=== PATIENT | male | born 1995 | race African-American/Black ===

== ENCOUNTER 2018-12-10 22:59 | Emergency (ER) | payer SELFPAY ==
[~2018-12-10] VITALS: Ht 188 cm; Wt 76.2 kg
[2018-12-10 23:07] VITALS: Ht 188 cm; Wt 76.2 kg
[2018-12-11] MEDS ORDERED: NAPROSYN500 MG PO (00:50)
[2018-12-11 01:05] VITALS: BP 139/89
== END 2018-12-11 01:05 | disposition home or self-care (01) ==
LOC: D.ER 22:59
DX: S83.91XA Sprain of unspecified site of right knee, initial encounter (principal); Y93.67 Activity, basketball; Y92.89 Other specified places as the place of occurrence of the external cause; F17.200 Nicotine dependence, unspecified, uncomplicated

== ENCOUNTER 2019-07-12 02:23 | Emergency (ER) | payer MEDICAID ==
[~2019-07-12] VITALS: Ht 188 cm; Wt 71.7 kg
[~2019-07-12 02:23] MED LIST: NAPROSYN500 MG PO
[2019-07-12 02:29] VITALS: Ht 188 cm; Wt 71.7 kg
[2019-07-12] MEDS ORDERED: NAPROSYN500 MG PO (03:11)
[2019-07-12] MEDS ORDERED: ULTRAM50 MG PO (03:11)
[2019-07-12 03:37] VITALS: BP 120/72
[2019-07-14 12:00] VITALS: Ht 188 cm; Wt 71.7 kg
== END 2019-07-12 03:27 | disposition home or self-care (01) ==
LOC: D.ER 02:23
DX: S83.91XA Sprain of unspecified site of right knee, initial encounter (principal); Y93.67 Activity, basketball; Y92.89 Other specified places as the place of occurrence of the external cause

== ENCOUNTER 2019-07-13 14:27 | Inpatient (IN) | payer MEDICAID ==
[2019-07-13] VITALS (19 sets, daily range): BP systolic 109–138; BP diastolic 77–98; BMI 20.3
[~2019-07-13] VITALS: Ht 188 cm; Wt 72.7 kg
[~2019-07-13 14:27] MED LIST changes: +ULTRAM50 MG PO
--- NOTE | 2019-07-13 14:28 | NUR ---
pt presented in waiting room
--- NOTE | 2019-07-13 14:29 | NUR ---
bud monique griffith in pt room
--- NOTE | 2019-07-13 14:32 | NUR ---
xray and lab in room
--- NOTE | 2019-07-13 14:35 | NUR ---
18 G left forearm 18 G right forearm
--- NOTE | 2019-07-13 14:40 | NUR ---
NOTIFIED SURVIVAL FLIGHT DISPATCH AT THIS TIME.
--- NOTE | 2019-07-13 14:43 | NUR ---
pads placed - 16 Fr criticore godfrey placed with immediate yellow urine return - no gross blood present in urine
--- NOTE | 2019-07-13 14:45 | NUR ---
marco james nurse circuit board drafter presents to T2
[2019-07-13 14:53] LABS: APTT 27.2 SECONDS (22.8-39.4); INR 1.07 (0.85-1.17); PROTIME 13.4 SECONDS (11.6-15.0)
[2019-07-13 14:58] LABS: BASOPHILS 0.5 % (0-2); EOSINOPHILS 1.1 % (0-7); HEMATOCRIT 42.6 % (42.0-54.0); IMMATURE GRANULOCYTES 0.1 % (0-5); LYMPHOCYTES 36.9 % (15-50); MCH 29.3 pg (26.0-34.0); MCHC 35.2 g/dL (31.0-37.0); MCV 83.2 fL (80.0-100.0); MEAN PLATELET VOLUME 9.1 fL (7.4-10.4); NEUTROPHILS 56.4 % (40-80); PLATELET COUNT 172 10x3/uL (130-400); RBC 5.12 10x6/uL (4.20-6.10); RDW 12.4 % (11.5-14.5); WBC 8.8 10x3/uL (4.8-10.8)
[2019-07-13 14:59] LABS: ALBUMIN 3.9 g/dL (3.4-5.0); ALKALINE PHOSPHATASE 72 U/L (46-116); ALT (SGPT) 47 U/L (10-68); BILIRUBIN - TOTAL 0.43 mg/dL (0.2-1.3); CALC OSMOLALITY 280 mosm/kg (275-300); CARBON DIOXIDE 24.4 mmol/L (21.0-32.0); CHLORIDE - SERUM 104 mmol/L (98-107); CREATININE - SERUM 1.1 mg/dL (0.6-1.3); GLUCOSE 111 mg/dL (74-106); POTASSIUM - SERUM 3.8 mmol/L (3.5-5.1); SODIUM 141 mmol/L (136-145); UREA NITROGEN 10 mg/dL (7-18); eGFR NON AFRICAN AMERICAN 90 mL/min (90-120)
--- NOTE | 2019-07-13 15:00 | NUR ---
[phone] at [id number]
--- NOTE | 2019-07-13 15:00 | NUR ---
PD @ BEDSIDE SPEAKING WITH PATIENT; GRANDMOTER AT BEDSIDE; PATIENT IS AWAKE AND ALERT; RESPONDS APPROPRIATELY; ADDITIONAL BLANKET GIVEN;
--- NOTE | 2019-07-13 15:01 | NUR ---
ER placed on lock down and pt visitors/family placed in family room at 1431
--- NOTE | 2019-07-13 15:04 | NUR ---
first unit of blood transfusion complete
--- NOTE | 2019-07-13 15:08 | NUR ---
returned from CT - pt accompanied by RN and provider to CT scan
--- NOTE | 2019-07-13 15:08 | NUR ---
returned from CT 22 G to r forearm
--- NOTE | 2019-07-13 15:09 | NUR ---
lashon on phone
--- NOTE | 2019-07-13 15:11 | NUR ---
patient speaking with PD Leonardo elizabeth4
--- NOTE | 2019-07-13 15:11 | NUR ---
pt confirms NKDA
--- NOTE | 2019-07-13 15:12 | NUR ---
spinal precautions initiated
[2019-07-13 15:16] LABS: TROPONIN-I < 0.017 ng/mL (0.000-0.060)
--- NOTE | 2019-07-13 15:17 | NUR ---
second unit of blood complete; patient is awake and alert; is able to move toes and hands; he is requesting grandmother to come back; patient covered with multiple blankets;
--- NOTE | 2019-07-13 15:19 | NUR ---
grandmother at bedside talking with patient.
[2019-07-13 15:24] LABS: APPEARANCE CLOUDY (CLEAR); COLOR AMBER (YELLOW)
[2019-07-13 15:25] LABS: BILIRUBIN NEGATIVE (NEGATIVE); GLUCOSE NEGATIVE (NEGATIVE); KETONE NEGATIVE (NEGATIVE); NITRITE NEGATIVE (NEGATIVE); PROTEIN 1+ mg/dL (NEGATIVE); SPECIFIC GRAVITY 1.025 (1.005-1.020); UROBILINOGEN NORMAL (NORMAL)
[2019-07-13 15:26] LABS: RED CELLS - URINE >50 /hpf (0-5); WHITE CELLS - URINE 0-5 /hpf (0-5)
[2019-07-13 15:27] LABS: BACTERIA FEW /hpf (NONE SEEN); EPITHELIAL CELLS 0-5 /hpf (0-5); UDS - AMPHET NEGATIVE QUAL (NEGATIVE); UDS - BARB NEGATIVE QUAL (NEGATIVE); UDS - BENZO NEGATIVE QUAL (NEGATIVE); UDS - COCAINE NEGATIVE QUAL (NEGATIVE); UDS - OPIATE NEGATIVE QUAL (NEGATIVE); UDS - PCP NEGATIVE QUAL (NEGATIVE); UDS - THC POSITIVE QUAL (NEGATIVE)
--- NOTE | 2019-07-13 15:28 | NUR ---
KHANG BURNETT @ BEDSIDE
--- NOTE | 2019-07-13 16:15 | NUR ---
ARIELLA AT BEDSIDE PLACING A CENTRAL LINE
[2019-07-13 16:50] LABS: HEMATOCRIT 38.5 % (42.0-54.0); HEMOGLOBIN 13.6 g/dL (13.5-17.5)
--- NOTE | 2019-07-13 16:50 | NUR ---
PT ARRIVED TO UNIT AT THIS TIME FROM ER VIA BED ACCOMPANIED BY HOSPITAL STAFF. UPON ARRIVAL PT NOTED TO VOMIT PINK COLORED FLUID X [address] KRISHNAN IN UNIT AT THAT TIME, SALAZAR ORDERED AND ADMIN. PT ASSISTED TO BED FROM ER BED. RT UPPER ABDOMEN SITE NOTED TO BE BULLET ENTRANCE SITE, OOZING MINIMAL AMOUNT OF BLOOD, GAUZE APPLIED TO AREA TO ASSIST THE DRAINAGE. DR DUARTE ON FLOOR TO SEE PT, NO ORDERS RECIEVED. DR MCGREGOR HAS BEEN NOTIFIED OF CONSULT BY DR KRISHNAN. VSS. WILL CONTINUE TO CLOSELY OBSERVE.
--- NOTE | 2019-07-13 17:19 | NUR ---
GRANDMOTHER AT BEDSIDE. EMERGENCY INFORMATION RECIEVED, CODE WORD SET UP. PT SLEEPING,RESPIRATIONS EVEN AND UNLABORED. NO ACUTE DISTRESS NOTED. WILL CONTINUE PLAN OF CARE.
--- NOTE | 2019-07-13 17:33 | NUR ---
SCD PLACED TO PT PER ORDERS AND ICENTIVE SPIROMETER PLACED IN PT ROOM BY BED PER ORDERS.
--- NOTE | 2019-07-13 20:00 | NUR ---
FAMILY AT BEDSIDE
[2019-07-13 20:35] LABS: HEMATOCRIT 38.3 % (42.0-54.0); HEMOGLOBIN 13.5 g/dL (13.5-17.5)
--- NOTE | 2019-07-13 22:55 | NUR ---
PATIENT HAD EPISODE OF VOMITING, BRIGHT RED LIQUID NOTED. REQUESTS NAUSEA MEDICATION.
[2019-07-14] VITALS (23 sets, daily range): BP systolic 104–135; BP diastolic 52–87; Ht 188 cm; Wt 72.7 kg
[2019-07-14] LABS: HEMATOCRIT 36.6 % (42.0-54.0); HEMOGLOBIN 12.9 g/dL (13.5-17.5)
--- NOTE | 2019-07-14 01:08 | NUR ---
PATIENT HAD ANOTHER EPISODE OF VOMITING. REQUESTED BEDPAN. NO BOWEL MOVEMENT NOTED.
--- NOTE | 2019-07-14 03:46 | NUR ---
PATIENT SLEEPING, NO DISTRESS NOTED. VITAL SIGNS WNL. IV INFUSING WITHOUT SIGNS OF INFILTRATION. BED LOWERED/LOCKED AND CALL LIGHT IS WITHIN REACH. WILL CONTINUE TO MONITOR.
[2019-07-14 05:31] LABS: BASOPHILS 0.1 % (0-2); EOSINOPHILS 0.1 % (0-7); HEMATOCRIT 33.9 % (42.0-54.0); HEMOGLOBIN 11.8 g/dL (13.5-17.5); IMMATURE GRANULOCYTES 0.3 % (0-5); MCH 29.1 pg (26.0-34.0); MCHC 34.8 g/dL (31.0-37.0); MCV 83.7 fL (80.0-100.0); MEAN PLATELET VOLUME 9.2 fL (7.4-10.4); MONOCYTES 4.2 % (2-11); NEUTROPHILS 88.3 % (40-80); RDW 12.7 % (11.5-14.5)
[2019-07-14 05:32] LABS: PLATELET COUNT 121 10x3/uL (130-400); RBC 4.05 10x6/uL (4.20-6.10); WBC 16.9 10x3/uL (4.8-10.8)
[2019-07-14 05:47] LABS: ALKALINE PHOSPHATASE 62 U/L (46-116); BILIRUBIN - TOTAL 0.62 mg/dL (0.2-1.3); CALC OSMOLALITY 277 mosm/kg (275-300); CALCIUM 7.9 mg/dL (8.5-10.1); CHLORIDE - SERUM 106 mmol/L (98-107); CREATININE - SERUM 0.9 mg/dL (0.6-1.3); GLUCOSE 121 mg/dL (74-106); PROTEIN - SERUM 5.7 g/dL (6.4-8.2); SODIUM 139 mmol/L (136-145); UREA NITROGEN 10 mg/dL (7-18); eGFR NON AFRICAN AMERICAN > 90 mL/min (90-120)
[2019-07-14 05:49] LABS: ALT (SGPT) 480 U/L (10-68); POTASSIUM - SERUM 4.4 mmol/L (3.5-5.1)
--- NOTE | 2019-07-14 05:55 | NUR ---
PATIENT CHG BATH COMPLETED FOR SURGERY, GOWN CHANGED, PATIENT REPOSITIONED. PATIENT TOLERATED WELL. DENIES FURTHER NEEDS OR CONCERNS AT THIS TIME. VITAL SIGNS WNL, PATIENT IN NO DISTRESS. BED LOWERED/LOCKED AND CALL LIGHT WITHIN REACH. WILL CONTINUE TO MONITOR.
--- NOTE | 2019-07-14 07:00 | NUR ---
SHIFT ASSESSMENT COMPLETED. PT CARE ASSUMED, MONITORS ON AND WORKING, VITALS STABLE. PT AWAKE AND ALERT, CALL LIGHT WITHIN REACH, WILL CONTINUE TO OBSERVE.
[2019-07-14 09:05] LABS: HEMATOCRIT 31.5 % (42.0-54.0); HEMOGLOBIN 11.2 g/dL (13.5-17.5)
--- NOTE | 2019-07-14 11:30 | NUR ---
PT URINE COMING OUT AROUND DUARTE, ATTEMPTED TO FLUSH CATHETER, AT WHICH TIME URINE WAS COMING OUT AROUND CATHETER, CHECKED TO SEE IF BALLON WAS INFLATED, ONCE BALLON WAS DEFLATED, THE DUARTE BECAME DISLODGED.
--- NOTE | 2019-07-14 13:40 | NUR ---
PT IN OR.
--- NOTE | 2019-07-14 14:16 | NUR ---
BULLET WAS GIVEN TO RYAN ROSS IN THE ICU TO BE GIVEN TO MELLY CRAWFORD.
[2019-07-14 14:50] LABS: HEMATOCRIT 29.4 % (42.0-54.0); HEMOGLOBIN 10.3 g/dL (13.5-17.5)
--- NOTE | 2019-07-14 15:30 | NUR ---
PT BACK FROM OR, PT AWAKE AND ALERT, MONITORS ON AND WORKING, FOREIGN BODY REMOVED, INCISION TO LEFT LOWER BACK CLEAN DRY INTACT. FAMILY AT BEDSIDE. CALL LIGHT WITHIN REACH, WILL CONTINUE TO OBSERVE.
--- NOTE | 2019-07-14 17:00 | NUR ---
PT AWAKE AND ALERT, TOLERATES FULL LIQUID DIET FINE, UP AT BEDSIDE, USES URINAL, PT DENIES ANY COMPLAINT OF PAIN OR DISCOMFORT AT THIS TIME, CALL LIGHT WITHIN REACH, WILL CONTINUE TO OBSERVE.
--- NOTE | 2019-07-14 19:00 | NUR ---
BEDSIDE REPORT AND SHIFT ASSESSMENT COMPLETE. VSS, NO SIGNS OF ACUTE DISTRESS NOTED. R ABD DRESSING CDI, BACK DRESSING CDI, WNL. DENIES NEEDS AT THIS TIME, WILL CONTINUE TO MONITOR.
--- NOTE | 2019-07-14 21:00 | NUR ---
MEDS GIVEN PER MAR. VSS, NO SIGNS OF ACUTE DISTRESS NOTED. WILL CONTINUE TO MONITOR.
--- NOTE | 2019-07-14 23:00 | NUR ---
ASSISTED TO SIDE OF BED TO USE URINAL. UOP 450 ML. PT BACK TO BED.
[2019-07-14 23:32] LABS: HEMATOCRIT 27.5 % (42.0-54.0); HEMOGLOBIN 9.9 g/dL (13.5-17.5)
[2019-07-15] VITALS (10 sets, daily range): BP systolic 98–129; BP diastolic 53–88
--- NOTE | 2019-07-15 01:00 | NUR ---
PT LAYING IN BED, TALKING ON THE PHONE. DENIES NEEDS AT THIS TIME. WILL CONTINUE TO MONITOR.
--- NOTE | 2019-07-15 03:00 | NUR ---
PT SLEEPING. VSS, NO SIGNS OF ACUTE DISTRESS NOTED. WILL CONTINUE TO MONITOR.
[2019-07-15 05:00] LABS: BASOPHILS 0.1 % (0-2); EOSINOPHILS 0.1 % (0-7); HEMATOCRIT 28.2 % (42.0-54.0); IMMATURE GRANULOCYTES 0.2 % (0-5); LYMPHOCYTES 13.8 % (15-50); MCH 29.3 pg (26.0-34.0); MCHC 35.5 g/dL (31.0-37.0); MCV 82.7 fL (80.0-100.0); MEAN PLATELET VOLUME 9.1 fL (7.4-10.4); MONOCYTES 7.5 % (2-11); NEUTROPHILS 78.3 % (40-80); PLATELET COUNT 110 10x3/uL (130-400); RBC 3.41 10x6/uL (4.20-6.10); RDW 12.4 % (11.5-14.5); WBC 14.3 10x3/uL (4.8-10.8)
--- NOTE | 2019-07-15 05:00 | NUR ---
MEDS GIVEN PER MAR. WILL MONITOR.
[2019-07-15 05:23] LABS: ALBUMIN 3.2 g/dL (3.4-5.0); ALKALINE PHOSPHATASE 65 U/L (46-116); ALT (SGPT) 489 U/L (10-68); BILIRUBIN - TOTAL 0.73 mg/dL (0.2-1.3); CALC OSMOLALITY 274 mosm/kg (275-300); CALCIUM 8.7 mg/dL (8.5-10.1); CARBON DIOXIDE 30.9 mmol/L (21.0-32.0); CHLORIDE - SERUM 104 mmol/L (98-107); CREATININE - SERUM 0.9 mg/dL (0.6-1.3); GLUCOSE 103 mg/dL (74-106); POTASSIUM - SERUM 4.2 mmol/L (3.5-5.1); PROTEIN - SERUM 6.3 g/dL (6.4-8.2); SODIUM 138 mmol/L (136-145); UREA NITROGEN 10 mg/dL (7-18); eGFR NON AFRICAN AMERICAN > 90 mL/min (90-120)
--- NOTE | 2019-07-15 06:00 | NUR ---
PT C/O PAIN IN SIDE. INCISION DRESSING CDI, WNL. MEDS GIVEN PER MAR. WILL CONTINUE TO MONITOR.
--- NOTE | 2019-07-15 08:27 | NUR ---
0700 ASLEEP AWAKENS EASILY VOICES NO COMPLAINTS AT PRESENT ASSESSMENT COMPLETE ALL IV LINES SALINE LOCKED REPOSITINED SELF IN BED WITH MINIMAL ASSIST PT ABLE TO USE BED CONTROLS TO REPOSITION BED
--- NOTE | 2019-07-15 08:29 | NUR ---
0800 VISITOR AT BEDSIDE REQUESTING PAIN MED INFORMED PT THAT HE HAD A PAIN PILL AT 0608 AND HE CAN HAVE ANOTHER AT 1008 STATED THAT AT 6AM HIS PAIN WAS ABOUT 8/10 AND NOW IT HAS DECREASED TO 4/10
--- NOTE | 2019-07-15 09:52 | NUR ---
0900 VISITORS AT BEDSIDE
--- NOTE | 2019-07-15 10:25 | NUR ---
1010 NORCO 5MG PO GIVEN FOR C/O ABDOMINAL PAIN 07/05. [facility]. D/C RIGHT AC AND LEFT FOREARM SALINE LOCKS. VOIDED 200ML OF DARK, CONCENTRATED URINE
[2019-07-15] MEDS ORDERED: HYDROCODON-ACE1 EAC7 PO (13:06)
[2019-07-15] MEDS ORDERED: LEVOFLOXACIN500 MG PO (13:07)
[2019-07-15] MEDS ORDERED: MIRALAX17 GM PO (13:07)
--- NOTE | 2019-07-15 14:15 | NUR ---
CVL/PIC DC'D AT THIS TIME, CATH INTACT, PT TOLERATED WELL
--- NOTE | 2019-07-15 14:20 | NUR ---
DC INSTRUCTIONS GIVEN TO PT
--- NOTE | 2019-07-15 14:24 | NUR ---
PT DC'D AT THIS TIME, VIA WHEELCHAIR
--- NOTE | 2019-07-15 18:10 | MORECARE ---
CASE MANAGEMENT DISCHARGE SUMMARY PATIENT: MARBELLA BASURTO UNIT: [id number] ADM DATE: 07/13/19 AGE: 23 : 97 SEX: M ROOM/BED: D.2305 AUTHOR: ANTHONY HERNANDEZ PHYSICIAN: REFERRING PHYSICIAN: MOISES KRISHNAN MD DATE OF SERVICE: 07/15/19 Discharge Plan Patient Name: MARBELLA BASURTO Facility: [facility]:[place] : 1995 Planned Disposition: Home Anticipated Discharge Date: Discharge Date: 07/15/2019 Expected LOS: Initial Reviewer: [email or web address] Initial Review Date: 07/15/2019 Generated: 07/15/19 7:10 pm Patient Name: MARBELLA BASURTO Page 10048 at 1810 All edits/amendments must be made on the electronic document DICTATION DATE: 07/15/191809 CRANE HELPER: ROSALIE 07/15/191809 RPT#: [id number] DC DATE:07/15/19 STATUS: DIS IN [facility] [address] [facility] [place] [address] END OF REPORT
--- NOTE | 2019-07-15 18:29 | MORECARE ---
CASE MANAGEMENT DISCHARGE SUMMARY PATIENT: MARBELLA BASURTO UNIT: [id number] ADM DATE: 07/13/19 AGE: 23 : 97 SEX: M ROOM/BED: D.2305 AUTHOR: ANTHONY HERNANDEZ PHYSICIAN: REFERRING PHYSICIAN: MOISES KRISHNAN MD DATE OF SERVICE: 07/15/19 Discharge Plan Patient Name: MARBELLA BASURTO Facility: [facility]:[place] : 1995 Planned Disposition: Home Anticipated Discharge Date: Discharge Date: 07/15/2019 Expected LOS: Initial Reviewer: [email or web address] Initial Review Date: 07/15/2019 Generated: 07/15/19 7:29 pm DCPIA - Discharge Planning Initial Assessment Updated by [email or web address]: Bess Collado on 07/15/19 6:25 pm * Is the patient Alert and Oriented? Yes * How many steps to enter\exit or inside your home? * PCP NO PCP * Pharmacy [facility] * Preadmission Environment Home with Family * ADLs Independent * Equipment Cane * List name and contact numbers for known caregivers / representatives who currently or will assist patient after discharge: HARRY MICHAELS - SISTER- [phone] TRE SONG - GRANDMOTHER- [phone] * Verbal permission to speak to the caregivers and representatives has been obtained from the patient. N/A * Community resources currently utilized None * Additional services required to return to the preadmission environment? No * Can the patient safely return to the preadmission environment? Yes * Has this patient been hospitalized within the prior 30 days at any hospital? No Last DP export: 07/15/19 5:10 p Patient Name: MARBELLA BASURTO Page [id number] at 1829 All edits/amendments must be made on the electronic document DICTATION DATE: 07/15/191828 CHILLER OPERATOR: ROSALIE 07/15/191828 RPT#: [id number] DC DATE:07/15/19 STATUS: DIS IN [facility] [address] [place] [address] END OF REPORT
--- NOTE | 2019-07-15 18:36 | MORECARE ---
CASE MANAGEMENT DISCHARGE SUMMARY PATIENT: MARBELLA BASURTO UNIT: [id number] ADM DATE: 07/13/19 AGE: 23 : 97 SEX: M ROOM/BED: D.2305 AUTHOR: MARY,DOC PHYSICIAN: REFERRING PHYSICIAN: MOISES KRISHNAN MD DATE OF SERVICE: 07/15/19 Discharge Plan Patient Name: MARBELLA BASURTO Facility: [facility]:[place] : 1995 Planned Disposition: Home Anticipated Discharge Date: Discharge Date: 07/15/2019 Expected LOS: Initial Reviewer: [email or web address] Initial Review Date: 07/15/2019 Generated: 07/15/19 7:35 pm Comments DCP- Discharge Planning Updated by [email or web address]: Bess Collado on 07/15/19 5:[address] LATE ENTRY 07/15/19 @ 1115 Patient Name: MARBELLA BASURTO Admission Status: ER Accout number: [id number] Admission Date: 07-13-2019 : 1995 Admission Diagnosis:MAJOR LACERATION OF RIGHT KIDNEY, INITIAL ENCOUNTER Attending: MOISES KRISHNAN Current LOS: 2 Anticipated DC Date: Planned Disposition: Home Primary Insurance: MEDICAID [place] PENDING Discharge Planning Comments: CM met with patient at bedside after explaining CM role and obtaining verbal consent. Patient lives at home with his family and plans to return there upon discharge. Patient feels this would be a safe discharge. CM discussed availability / needs of home health and medical equipment. Patient states his grandmother has got a cane for him to use. Patient denies any discharge needs at this time. Patient states he will have family drive him home upon discharge. CM gave patient information on healthy connections to establish a PCP since he has Medicaid pending. CM will continue to follow and assist as needed with discharge planning / needs. Exercise Physiologist Certified: Bess Collado DCPIA - Discharge Planning Initial Assessment Updated by [email or web address]: Bess Collado on 07/15/19 6:25 pm * Is the patient Alert and Oriented? Yes * How many steps to enter\exit or inside your home? * PCP NO PCP * Pharmacy [facility] * Preadmission Environment Home with Family * ADLs Independent * Equipment Cane * List name and contact numbers for known caregivers / representatives who currently or will assist patient after discharge: HARRY MICHAELS - SISTER- [phone] TRE SONG - GRANDMOTHER- [phone] * Verbal permission to speak to the caregivers and representatives has been obtained from the patient. N/A * Community resources currently utilized None * Additional services required to return to the preadmission environment? No * Can the patient safely return to the preadmission environment? Yes * Has this patient been hospitalized within the prior 30 days at any hospital? No Last DP export: 07/15/19 5:29 p Patient Name: MARBELLA BASURTO Page [id number] at 1836 All edits/amendments must be made on the electronic document DICTATION DATE: 07/15/191834 SHIRT TURNER: ROSALIE 07/15/191834 RPT#: [id number] DC DATE:07/15/19 STATUS: DIS IN [facility] [address] [place] [address] END OF REPORT
== END 2019-07-15 14:25 | disposition home or self-care (01) | DRG 964 ==
LOC: D.ER 14:27 → D.ICU 15:52
PROVIDERS: Family Medicine; ADMIT Surgery; ATTEND Surgery
PROC: 02HV33Z Insertion of Infusion Device into Superior Vena Cava, Percutaneous Approach (ICD-10-PCS; 2019-07-13)
PROC: 0JC70ZZ Extirpation of Matter from Back Subcutaneous Tissue and Fascia, Open Approach (ICD-10-PCS; principal; 2019-07-14 14:00)
DX: S37.061A Major laceration of right kidney, initial encounter (principal); S36.116A Major laceration of liver, initial encounter; S22.31XA Fracture of one rib, right side, initial encounter for closed fracture; S32.019A Unspecified fracture of first lumbar vertebra, initial encounter for closed fracture; W34.00XA Accidental discharge from unspecified firearms or gun, initial encounter; Z72.0 Tobacco use

== ENCOUNTER → 2019-07-22 11:49 | Outpatient (CLI) | payer MEDICAID ==
[2019-07-14 12:00] VITALS: BMI 20.5
[~2019-07-22 11:49] MED LIST changes: +HYDROCODON-ACE1 EAC7 PO; +LEVOFLOXACIN500 MG PO; +MIRALAX17 GM PO
[2019-07-22 12:05] LABS: BASOPHILS 0.3 % (0-2); EOSINOPHILS 2.6 % (0-7); HEMATOCRIT 32.8 % (42.0-54.0); HEMOGLOBIN 11.6 g/dL (13.5-17.5); IMMATURE GRANULOCYTES 0.7 % (0-5); LYMPHOCYTES 14.8 % (15-50); MCH 29.1 pg (26.0-34.0); MCHC 35.4 g/dL (31.0-37.0); MCV 82.4 fL (80.0-100.0); MEAN PLATELET VOLUME 8.1 fL (7.4-10.4); MONOCYTES 8.4 % (2-11); NEUTROPHILS 73.2 % (40-80); RBC 3.98 10x6/uL (4.20-6.10); RDW 12.3 % (11.5-14.5); WBC 14.1 10x3/uL (4.8-10.8)
[2019-07-22 12:14] LABS: ALBUMIN 3.3 g/dL (3.4-5.0); ALKALINE PHOSPHATASE 118 U/L (46-116); ALT (SGPT) 120 U/L (10-68); BILIRUBIN - TOTAL 0.93 mg/dL (0.2-1.3); CALC OSMOLALITY 272 mosm/kg (275-300); CALCIUM 9.4 mg/dL (8.5-10.1); CARBON DIOXIDE 32.1 mmol/L (21.0-32.0); CHLORIDE - SERUM 98 mmol/L (98-107); CREATININE - SERUM 1.1 mg/dL (0.6-1.3); GLUCOSE 92 mg/dL (74-106); POTASSIUM - SERUM 4.2 mmol/L (3.5-5.1); PROTEIN - SERUM 8.4 g/dL (6.4-8.2); SODIUM 137 mmol/L (136-145); UREA NITROGEN 11 mg/dL (7-18); eGFR NON AFRICAN AMERICAN 90 mL/min (90-120)
[2019-07-22 12:18] LABS: PLATELET COUNT 334 10x3/uL (130-400)
== END | disposition home or self-care (01) ==
LOC: D.LABREF 11:49
PROVIDERS: ATTEND Surgery
DX: T14.8XXA Other injury of unspecified body region, initial encounter (principal); X58.XXXA Exposure to other specified factors, initial encounter

== ENCOUNTER → 2019-08-07 12:51 | Outpatient (CLI) | payer MEDICAID ==
[2019-07-14 12:00] VITALS: BMI 20.5
== END | disposition home or self-care (01) ==
LOC: D.CT 12:51
PROVIDERS: ATTEND Urology
DX: S37.031A Laceration of right kidney, unspecified degree, initial encounter (principal)

== ENCOUNTER 2020-04-30 02:14 | Emergency (ER) | payer MEDICAID ==
[~2020-04-30] VITALS: Ht 188 cm; Wt 77.3 kg
[2020-04-30 02:18] VITALS: BP 127/89; Ht 188 cm; Wt 77.3 kg
== END 2020-04-30 03:01 | disposition home or self-care (01) ==
LOC: D.ER 02:14
DX: S61.012A Laceration without foreign body of left thumb without damage to nail, initial encounter (principal); W26.8XXA Contact with other sharp object(s), not elsewhere classified, initial encounter; Y93.9 Activity, unspecified; Y92.9 Unspecified place or not applicable